=== PATIENT | male | born 1940 | race Native Hawaiian/Other Pacific Islander ===

== ENCOUNTER 2017-07-08 10:26 | Outpatient (CLI) | payer OTHER, MEDICARE | END 2017-07-08 18:19 | disposition home or self-care (01) | LOC: LABW 10:26 | DX: M10.072 Idiopathic gout, left ankle and foot (principal) | CPT/HCPCS: 36415; 84550; 85651 ==

== ENCOUNTER 2017-07-20 10:34 | Outpatient (CLI) | payer OTHER, MEDICARE | END 2017-07-20 23:34 | disposition home or self-care (01) | LOC: LABW 10:34 | DX: M10.072 Idiopathic gout, left ankle and foot (principal) | CPT/HCPCS: 36415; 84550; 85651 ==

== ENCOUNTER 2017-08-31 10:44 | Outpatient (CLI) | payer OTHER, MEDICARE | END 2017-08-31 21:22 | disposition home or self-care (01) | LOC: LABW 10:44 | DX: M10.071 Idiopathic gout, right ankle and foot (principal); M10.072 Idiopathic gout, left ankle and foot | CPT/HCPCS: 36415; 84550; 85651 ==

== ENCOUNTER 2021-12-16 12:44 | Emergency (ER) | payer OTHER, MEDICARE ==
[~2021-12-16] VITALS: Ht 182.9 cm; Wt 77.1 kg
[2021-12-16 12:44] VITALS: TEMP 98
[2021-12-16 13:12] LABS: PLATELET COUNT 149 K/uL (142-355)
[2021-12-16 13:40] LABS: POTASSIUM 3.4 mmol/L (3.6-5.2)
[2021-12-16 15:37] VITALS: BP 104/58
== END 2021-12-16 15:38 | disposition short-term general hospital (02) ==
LOC: EDSTATUS 12:44 → ED 12:45
PROVIDERS: Emergency Medicine Emergency Medical Services
DX: R06.09 Other forms of dyspnea (principal); I50.9 Heart failure, unspecified; J90 Pleural effusion, not elsewhere classified; Z11.52 Encounter for screening for COVID-19
CPT/HCPCS: 36415; 80053; 83735; 83880; 84484; 85027; 85610; 87635; 93005; 96374; 99284; J1940; U0003